=== PATIENT | male | born 1995 | race Caucasian/White ===

== ENCOUNTER 2019-09-23 10:34 | Day surgery (SDC) | payer SELFPAY ==
[~2019-09-23 10:34] MED LIST: Sodium Chloride 0.9% 10 ML Syringe FLUSH PRN
[2019-09-23] MEDS ORDERED: Ketamine 200 MG/20 ML MDV IV ONE (10:35)
[2019-09-23] MEDS ORDERED: Midazolam 1 MG/ML 2 ML SDV IV ONE (10:35)
[2019-09-23] MEDS ORDERED: Propofol 200 MG/20 ML SDV IV ONE (10:35)
[2019-09-23] MEDS ORDERED: Midazolam 1 MG/ML 2 ML SDV ONE (11:02)
[2019-09-23] MEDS ORDERED: Ketamine 200 MG/20 ML MDV ONE (11:02)
[2019-09-23] MEDS ORDERED: Propofol 200 MG/20 ML SDV ONE (11:02)
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
[2019-09-23] MEDS: Lactated Ringers 1,000 ML IV SCH (12:00)
--- NOTE | 2019-09-23 12:36 | PCM.OPNOTE ---
- General Post-Op/Procedure Note Date of Surgery/Procedure: 09/23/19 Operative Procedure(s): EGD Findings: Possible diverticulum right oropharynx Exam otherwise normal Pre Op Diagnosis: Dysphagia Post-Op Diagnosis: Possible Zenker's Diverticulum Anesthesia Technique: MAC Primary Surgeon: Bucky Frausto Pathology: none EBL in mLs: 0 Complications: None Condition: Good
--- NOTE | 2019-09-23 15:35 | OR ---
DATE OF SURGERY: 09/23/2019 SURGEON: Bucky Frausto MD PREOPERATIVE DIAGNOSIS: Dysphagia. POSTOPERATIVE DIAGNOSIS: Possible Zenker's diverticulum. OPERATION PERFORMED: Esophagogastroduodenoscopy. INDICATIONS FOR SURGERY: This 24-year-old male has a 2-year history of increasing symptoms of dysphagia with a pressure and full feeling noted on the right side of his throat. FINDINGS: In the right side of the oropharynx, there did appear to be a recess in the mucosal lining. This was above the cricopharyngeus and was suggestive of a possible Zenker's diverticulum. The gastroscope did not easily pass by this area on the right side, although it did pass easily on the left side. The lining of the esophagus, stomach, and examined duodenum otherwise appeared normal. DESCRIPTION OF PROCEDURE: The patient was taken to the operating room. He was given intravenous sedation and with him in the left lateral decubitus position, he was given intravenous sedation and a mouth gag is inserted. The Olympus gastroscope was advanced into the oral cavity and then carefully advanced back to the region of the oropharynx. The vocal cords viewed and appeared normal. The oropharynx is examined as could possibly and safely be accomplished. There did appear to be a recess in the mucosal structures on the right (symptomatic) side and the scope did not easily advanced past this region on the right side. Upon moving the scope over to the left side of the oropharynx, it easily advanced down past the cricopharyngeus and into the esophagus. The scope was then advanced down through the stomach and duodenum, where examination to the 3rd portion was performed. Careful examination of the duodenum was carried out and the stomach is examined including retroflexed examination of the fundus. The GE junction and esophagus are then examined as the scope was withdrawn. Again, an attempt is made to re-examine the oropharynx upon withdrawal of the scope. No mass or specific mucosal abnormality is identified about the possibility of a diverticulum on the right side is noted. The scope was removed and the patient was taken from the operating room in satisfactory condition. ESTIMATED BLOOD LOSS: 0. COMPLICATIONS: None. PROGNOSIS: Good. COMMENT: We will order an esophagram to further delineate the anatomy of the patient's esophagus. /[id number]/MODL
== END 2019-09-23 14:22 | disposition home or self-care (01) ==
LOC: KA.SDS 10:34
PROVIDERS: ATTEND Surgery
DX: R13.10 Dysphagia, unspecified (principal); R63.4 Abnormal weight loss; F17.210 Nicotine dependence, cigarettes, uncomplicated; Z11.59 Encounter for screening for other viral diseases; Z68.20 Body mass index [BMI] 20.0-20.9, adult
CPT/HCPCS: 00731; J2250; J2704; J7120; U0002